=== PATIENT | male | born 1950 | race Caucasian/White ===

== ENCOUNTER 2016-06-06 08:36 | Outpatient (CLI) | payer MEDICARE ==
[2016-06-06 08:57] LABS: #Basophils 0.1 thou/uL (0.0-0.2); #Eosinphils 0.4 thou/uL (0.0-0.7); #Lymphocytes 1.9 thou/uL (1.20-3.40); #Monocytes 0.7 thou/uL (0.11-0.59); #Neutrophils 4.6 thou/uL (1.40-6.50); %Eosinophils 4.9 % (0.0-10.0); %Lymphocytes 24.8 % (21.0-51.0); %Monocytes 8.8 % (0.0-10.0); %Neutrophils 60.5 % (42.0-75.0); Hemoglobin 15.5 g/dL (14.0-18.0); Mean Corpuscular HGB CONC 32.8 g/dL (32.0-36.0); Mean Corpuscular Hemoglobin 29.8 pg (27.0-31.0); Mean Corpuscular Volume 90.9 fl (80.0-94.0); Mean Platelet Volume 7.2 fL (7.4-10.4); Platelet Count 320 thou/uL (130-400); RBC Distribution Width 12.2 % (11.5-14.5); White Blood Cell (WBC) Count 7.6 thou/uL (4.8-10.8)
[2016-06-06 08:59] LABS: Bilirubin Negative (Negative); Blood, Urine Negative (Negative); Clarity Clear (Clear); Glucose, Urine (Dipstick) Negative (Negative); Leukocyte Negative (Negative); Nitrite Negative (Negative); Protein, Urine (Dipstick) Negative (Neg-Trace); Urobilinogen 0.2 mg/dL (0.2-1.0)
[2016-06-06 09:01] LABS: Specific Gravity, Urine 1.024 (1.002-1.036)
[2016-06-06 09:20] LABS: ALT (SGPT) 17 U/L (0-55); AST (SGOT) 15 U/L (5-34); Albumin 4.4 g/dL (3.4-4.8); Alkaline Phosphatase 67 U/L (40-150); Anion Gap 14 mmol/L (10-20); BUN (Urea Nitrogen) 15 mg/dL (8.4-25.7); Bilirubin, Total 0.5 mg/dL (0.2-1.2); Calc. Creatinine Clearance 0 mL/min (70-130); Calcium 9.8 mg/dL (7.8-10.44); Carbon Dioxide 27 mmol/L (23-31); Cardiac Risk 3.5 (Less than 4.5); Chloride 104 mmol/L (98-107); Cholesterol 237 mg/dL (< 200 Desired); Estimated GFR-MDRD 65; Globulin 3.1 g/dL (2.4-3.5); Glucose 102 mg/dL (80-115); HDL Cholesterol 68 mg/dL (>60 Neg Risk); LDL Cholesterol, Calculated 148 mg/dL; Potassium 4.6 mmol/L (3.5-5.1); Protein, Total 7.5 g/dL (5.8-8.1); Sodium 140 mmol/L (136-145); Triglycerides 106 mg/dL (Less than 150)
[2016-06-06 09:45] LABS: PSA-Asymptomatic (SCREENING) 0.48 ng/mL (0-4.0); Thyroid Stimulating Hormone 0.7379 uIU/mL (0.35-4.94)
[2016-06-06 11:15] LABS: Free T4 (Free Thyroxine) 0.99 ng/dL (0.70-1.48); Vitamin D, 25 Hydroxy 38.4 ng/mL (> 30.0)
[2016-06-06 13:23] LABS: Bacteria/HPF Rare-Few HPF (None Seen); RBC/HPF 0-3 HPF (0-3); Squamous Epithelial 0-3 HPF (0-3); WBC/HPF 0-3 HPF (0-3)
== END 2016-06-06 08:37 | disposition home or self-care (01) ==
LOC: MADLAB 08:36
PROVIDERS: ATTEND Internal Medicine
DX: Z12.5 Encounter for screening for malignant neoplasm of prostate (principal); E78.5 Hyperlipidemia, unspecified; E55.9 Vitamin D deficiency, unspecified; R10.84 Generalized abdominal pain
CPT/HCPCS: 36415; 80053; 80061; 81001; 82306; 84439; 84443; 85025; G0103

== ENCOUNTER 2018-06-11 08:07 | Outpatient (CLI) | payer MEDICARE ==
[2018-06-11 13:12] LABS: Bilirubin Negative (Negative); Blood, Urine Negative (Negative); Clarity Clear (Clear); Glucose, Urine (Dipstick) Negative (Negative); Leukocyte Negative (Negative); Nitrite Negative (Negative); Protein, Urine (Dipstick) Negative (Neg-Trace); Urobilinogen 0.2 mg/dL (0.2-1.0); pH, Urine 5.5 (5.0-9.0)
[2018-06-11 13:21] LABS: RBC/HPF 0-3 HPF (0-3); Specific Gravity, Urine 1.027 (1.002-1.036)
[2018-06-11 13:22] LABS: Bacteria/HPF Rare-Few HPF (None Seen); Crystals/HPF 1+ AMORPH URATES HPF (Negative); Squamous Epithelial 0-3 HPF (0-3); WBC/HPF 0-3 HPF (0-3)
[2018-06-11 13:36] LABS: ALT (SGPT) 14 U/L (8-55); AST (SGOT) 13 U/L (5-34); Albumin 4.4 g/dL (3.4-4.8); Alkaline Phosphatase 64 U/L (40-150); Anion Gap 13 mmol/L (10-20); BUN (Urea Nitrogen) 16 mg/dL (8.4-25.7); Bilirubin, Total 0.4 mg/dL (0.2-1.2); Calc. Creatinine Clearance 0 mL/min (70-130); Calcium 9.9 mg/dL (7.8-10.44); Carbon Dioxide 29 mmol/L (23-31); Cardiac Risk 3.6 (Less than 4.5); Chloride 105 mmol/L (98-107); Cholesterol 218 mg/dl (< 200 Desired); Estimated GFR-MDRD 73; Globulin 2.7 g/dL (2.4-3.5); Glucose 103 mg/dL (80-115); HDL Cholesterol 60 mg/dL (>60 Neg Risk); LDL Cholesterol, Calculated 140 mg/dL; Potassium 5.2 mmol/L (3.5-5.1); Protein, Total 7.1 g/dL (5.8-8.1); Sodium 142 mmol/L (136-145); Triglycerides 90 mg/dL (Less than 150)
[2018-06-11 14:24] LABS: Thyroid Stimulating Hormone 0.7184 uIU/mL (0.35-4.94)
[2018-06-11 19:13] LABS: Free T4 (Free Thyroxine) 1.02 ng/dL (0.70-1.48)
[2018-06-11 19:16] LABS: PSA-Asymptomatic (SCREENING) 0.34 ng/mL (0-4.0); Vitamin D, 25 Hydroxy 41.3 ng/ml (> 30.0)
== END 2018-06-11 08:08 | disposition home or self-care (01) ==
LOC: MADLAB 08:07
PROVIDERS: ATTEND Internal Medicine
DX: Z12.5 Encounter for screening for malignant neoplasm of prostate (principal); E55.9 Vitamin D deficiency, unspecified; I10 Essential (primary) hypertension; E78.5 Hyperlipidemia, unspecified
CPT/HCPCS: 36415; 80053; 80061; 81001; 82306; 84439; 84443; G0103

== ENCOUNTER 2025-02-24 07:54 | Outpatient (CLI) | payer MEDICARE ==
[2025-02-24 08:39] LABS: ALT (SGPT) 8 U/L (Less than 45); AST (SGOT) 15 U/L (11-34); Albumin 4.2 g/dL (3.1-4.5); Alkaline Phosphatase 68 U/L (40-110); Anion Gap 14 mmol/L (10-20); BUN (Urea Nitrogen) 17 mg/dL (8.4-25.7); Bilirubin, Total 0.5 mg/dL (0.3-1.2); Calc. Creatinine Clearance 0 mL/min (70-130); Calcium 9.7 mg/dL (7.8-10.44); Carbon Dioxide 28 mmol/L (23-31); Cardiac Risk 3.3 (Less than 4.5); Chloride 102 mmol/L (98-107); Cholesterol 193 mg/dl (< 200 Desired); Globulin 3.4 g/dL (2.4-3.5); Glucose 102 mg/dL (83-110); HDL Cholesterol 58 mg/dL (>60 Neg Risk); LDL Cholesterol, Calculated 115 mg/dL; Potassium 4.4 mmol/L (3.5-5.1); Sodium 140 mmol/L (136-145); Triglycerides 99 mg/dL (Less than 150)
[2025-02-24 16:42] LABS: PSA-Asymptomatic (SCREENING) 0.426 ng/mL (0-4.0); Vitamin D, 25 Hydroxy 43.1 ng/ml (> 30.0)
[2025-02-24 17:33] LABS: Free T4 (Free Thyroxine) 0.97 ng/dL (0.70-1.48)
== END 2025-02-24 07:55 | disposition home or self-care (01) ==
LOC: MADLAB 07:54
PROVIDERS: ATTEND Internal Medicine
DX: Z12.5 Encounter for screening for malignant neoplasm of prostate (principal); I10 Essential (primary) hypertension; R79.89 Other specified abnormal findings of blood chemistry; Z79.899 Other long term (current) drug therapy
CPT/HCPCS: 36415; 80053; 80061; 82306; 84439; 84443; G0103